=== PATIENT | male | born 1965 | race Caucasian/White ===

== ENCOUNTER 2020-01-02 16:02 | Emergency (ER) | payer OTHER ==
[~2020-01-02] VITALS: Ht 180.3 cm; Wt 90.0 kg
[2020-01-02 16:06] VITALS: BP 152/82
--- NOTE | 2020-01-02 16:34 | NUR ---
HOTEL SERVICE SUPERVISOR: PT TAKEN TO ROOM VIA WHEELCHAIR AT THIS TIME. ELROY
--- NOTE | 2020-01-02 19:29 | NUR ---
SKI GUIDE: GIFT MANAGER CAME TO THIS RN AND REPORTED THERE WAS A PATIENT IN ROOM 30 THAT HAD NOT BEEN SEEN BY MD YET AND WAS ASKING ABOUT BEING SEEN. UPON INVESTIGATION INTO CHART PT. WAS CHARTED ELOPED. PT. REQUESTING FOR MD BERNARD; CHART HANDED TO DR. DAVID AND PT. ADDED BACK ONTO TRACKER.
--- NOTE | 2020-01-02 19:36 | NUR ---
ERP AT BEDSIDE FOR EVALUATION.
--- NOTE | 2020-01-02 20:15 | NUR ---
ZA RN: LAB AT BEDSIDE. PT DENIES NEEDS AT THIS TIME.
[2020-01-02 20:29] LABS: BASOPHILS # (AUTO) 0.04 x10^3/uL (0-0.1); BASOPHILS % (AUTO) 0 % (0-1); EOSINOPHILS % (AUTO) 0 % (1-7); LYMPHOCYTES # (AUTO) 1.12 x10^3/uL (1-3.4); LYMPHOCYTES % (AUTO) 12 % (22-44); MD NO; MEAN CORPUSCULAR HEMOGLOBIN 27.8 pg (27.5-34.5); MEAN CORPUSCULAR HGB CONC 33.1 g/dL (33.2-36.2); MEAN PLATELET VOLUME 7.8 fL (7.4-10.4); MONOCYTES # (AUTO) 0.35 x10^3/uL (0.2-0.8); MONOCYTES % (AUTO) 4 % (2-9); NEUTROPHILS # (AUTO) 7.77 x10^3/uL (1.8-6.8); NEUTROPHILS % (AUTO) 84 % (42-75); PLATELET COUNT 232 x10^3/uL (130-400); RED BLOOD COUNT 5.53 x10^6/uL (4.38-5.82); RED CELL DISTRIBUTION WIDTH 14.3 % (9.4-14.8)
[2020-01-02 20:37] LABS: ALBUMIN 4.2 g/dL (3.4-5.0); ANION GAP 6 mmol/L (5-15); CALCIUM 9.1 mg/dL (8.5-10.1); CHLORIDE 108 mmol/L (98-107); CREATININE 1.24 mg/dL (0.7-1.3)
--- NOTE | 2020-01-02 20:43 | NUR ---
ERP AT BEDSIDE TO DISCUSS PLAN OF CARE.
== END 2020-01-02 17:49 | disposition left against medical advice (07) ==
LOC: ED 17:40
DX: N13.2 Hydronephrosis with renal and ureteral calculous obstruction (principal); N23 Unspecified renal colic; R11.2 Nausea with vomiting, unspecified
CPT/HCPCS: 36415; 74176; 80048; 82040; 85025; 99284